=== PATIENT | male | born 1970 | race Native Hawaiian/Other Pacific Islander ===

== ENCOUNTER 2016-11-26 17:58 | Emergency (ER) | payer MEDICAID ==
[~2016-11-26] VITALS: Ht 162.6 cm; Wt 70.8 kg
[2016-11-26 18:11] VITALS: BP 159/89
--- NOTE | 2016-11-26 19:39 | NUR ---
PT TAKEN TO BED 6
[2016-11-26 19:41] LABS: HEMATOCRIT 49.8 % (36-52); HEMOGLOBIN 16.6 g/dL (12.0-18.0); MEAN CORPUSCULAR HEMOGLOBIN 30 pg (27-31); MEAN CORPUSCULAR HGB CONC 33 g/dL (33-37); MEAN CORPUSCULAR VOLUME 89 fL (80-94); PLATELET COUNT (AUTO) 356 K/uL (140-450); RED BLOOD CELL COUNT(AUTO) 5.57 MIL/uL (4.20-6.10); RED CELL DISTRIBUTION WIDTH 11.9 % (11.6-13.7); WHITE BLOOD COUNT (AUTO) 22.3 K/uL (4.8-10.8)
[2016-11-26 19:47] LABS: ALBUMIN 4.1 g/dL (3.4-5.0); ANION GAP 11.1 (8-16); CARBON DIOXIDE 31.4 mmol/L (21-32); CREATININE 1.1 mg/dL (0.7-1.3); POTASSIUM 3.5 mmol/L (3.5-5.1); TOTAL BILIRUBIN 1.6 mg/dL (0.0-1.0)
--- NOTE | 2016-11-26 19:50 | NUR ---
45/M C/O 11/29 EPIGASTRIC PAIN x TODAY @ 1300 AFTER EATING A MEAL, SHARP NON-RADIATING. PT HAS N/V x 6 BUT NO DIARRHEA OR CONSTIPATION RPEORTED. BS ACTIVE X 4 QUADRANTS, EPIGASTRIC TENDER TO TOUCH. NO PMH REPORTED, NO RX REPORTED SKIN IS PINK/WARM/DRY; AAOX4 WITH EVEN AND STEADY GAIT; LUNGS CLEAR BL; HR EVEN AND REGULAR; PT DENIES ANY FEVER, CP, SOB, OR COUGH AT THIS TIME; VSS; PATIENT POSITIONED FOR COMFORT; HOB ELEVATED; BEDRAILS UP X2; BED DOWN. ER MD MADE AWARE OF PT STATUS.
[2016-11-26 19:54] LABS: LYMPHOCYTES % (MANUAL) 3 % (20-46); MONOCYTES % (MANUAL) 1 % (5-12)
--- NOTE | 2016-11-26 20:47 | NUR ---
Dr. Joaquin evaluating patient at bedside.
--- NOTE | 2016-11-26 21:45 | NUR ---
Ultrasound at bedside.
--- NOTE | 2016-11-26 23:32 | NUR ---
Patient discharged with v/s stable. Written and verbal after care instructions given and explained. Patient alert, oriented and verbalized understanding of instructions. Ambulatory with steady gait. All questions addressed prior to discharge. ID band removed. Patient advised to follow up with PMD. Rx of PROTONIX 40 MG given. Patient educated on indication of medication including possible reaction and side effects. Opportunity to ask questions provided and answered.
[2016-11-26 23:36] VITALS: BP 130/81
== END 2016-11-26 23:32 | disposition home or self-care (01) ==
LOC: MED 17:58
DX: K80.20 Calculus of gallbladder without cholecystitis without obstruction (principal); R03.0 Elevated blood-pressure reading, without diagnosis of hypertension
CPT/HCPCS: 36415; 74176; 76705; 80053; 82150; 83615; 83690; 85025; 93005; 99285; Q0092

== ENCOUNTER 2022-05-30 14:10 | Inpatient (IN) | payer MEDICAID ==
[~2022-05-30] VITALS: Ht 162.6 cm; Wt 67.1 kg
[2022-05-30 14:42] VITALS: BP 152/89
[2022-05-30] MEDS ORDERED: ALUMINUM HYD/MAG/SIMETHICONE 30 ML UDC PO ONE (15:50)
[2022-05-30] MEDS ORDERED: FAMOTIDINE 20 MG TAB PO ONE (15:50)
[2022-05-30 16:04] LABS: BASOPHILS # (AUTO) 0.1 K/uL (0.00-0.22); BASOPHILS % (AUTO) 0.5 % (0.0-2.0); EOSINOPHILS # (AUTO) 0.1 K/uL (0-0.4); EOSINOPHILS % (AUTO) 0.9 % (0.0-4.0); HEMATOCRIT 45.7 % (36-52); HEMOGLOBIN 15.6 g/dL (12.0-18.0); LYMPHOCYTES # (AUTO) 1.3 K/uL (2.0-11.5); LYMPHOCYTES % (AUTO) 10.2 % (20.5-51.1); MEAN CORPUSCULAR HEMOGLOBIN 30 pg (27-31); MEAN CORPUSCULAR HGB CONC 34 g/dL (33-37); MEAN CORPUSCULAR VOLUME 88.8 fL (80-94); MONOCYTES # (AUTO) 0.8 K/uL (0.8-1.0); MONOCYTES % (AUTO) 6.6 % (1.7-9.3); NEUTROPHILS # (AUTO) 10.5 K/uL (1.8-7.7); NEUTROPHILS % (AUTO) 81.8 % (42.2-75.2); PLATELET COUNT (AUTO) 279 K/uL (140-450); RED BLOOD CELL COUNT(AUTO) 5.15 MIL/uL (4.20-6.10); RED CELL DISTRIBUTION WIDTH 12.7 % (11.6-13.7); WHITE BLOOD COUNT (AUTO) 12.8 K/uL (4.8-10.8)
[2022-05-30 16:21] LABS: ALBUMIN 3.9 g/dL (3.4-5.0); ANION GAP 7.9 (8-16); ASPARTATE AMINOTRANSFERASE 46 U/L (15-37); CARBON DIOXIDE 31.7 mmol/L (21-32); CHLORIDE 104 mmol/L (98-107); CREATININE 0.9 mg/dL (0.6-1.3); GFR ARICAN-AMERICAN 115 mL/min (>90); GLUCOSE 136 mg/dL (74-106); LIPASE 79 U/L (73-393); POTASSIUM 4.6 mmol/L (3.5-5.1); SODIUM SERUM 139 mmol/L (136-145); TOTAL BILIRUBIN 0.4 mg/dL (0.0-1.0); UREA NITROGEN, BLOOD 10 mg/dL (7-18)
[2022-05-30] MEDS ORDERED: FAMOTIDINE 20 MG TAB ONE (17:01)
[2022-05-30] MEDS ORDERED: ALUMINUM HYD/MAG/SIMETHICONE 30 ML UDC ONE (17:02)
[2022-05-30] MEDS ORDERED: KETOROLAC 15 MG/ML VIAL IM ONE (17:20)
[2022-05-30] MEDS ORDERED: MORPHINE SULFATE 4 MG/ML SYR IVP ONE (19:05)
[2022-05-30] MEDS ORDERED: NACL 0.9% 1,000 ML IV ONE (19:05)
[2022-05-30] MEDS ORDERED: ONDANSETRON 4 MG/2 ML VIAL IVP ONE (19:05)
--- NOTE | 2022-05-30 20:00 | NUR ---
PT WENT TO THE BED 11
--- NOTE | 2022-05-30 20:10 | NUR ---
pt is presenting to the ED for evaluation of a 2-day history of intermittent, nonradiating, burning epigastric abdominal pain. Patient reports the pain feels worse after eating. pt is lart and oriented. Pt speakes pashto only. ambulatory and room air.
--- NOTE | 2022-05-30 20:30 | NUR ---
pt is complaning about the apin in the abd 09/29.
[2022-05-30] MEDS: NACL 0.9% 1,000 ML IV SCH (22:36)
--- NOTE | 2022-05-30 23:30 | NUR ---
pt asking for the food since he was hungry. Item was provided.
[2022-05-31 00:10] VITALS: BP 144/88
--- NOTE | 2022-05-31 00:10 | NUR ---
PT TRANSPORTED BY ER NURSE FROM ER VIA WHEELCHAIR. RECEIVED REPORT FROM ER NURSE MELI FOR CONTINUITY OF CARE. PT A/A/O, AMBULATORY, ABLE TO MAKE NEEDS KNOWN. RESPIRATIONS EVEN AND UNLABORED ON RA. NO DISTRESS NOTED. COMPLAINED OF ABDOMINAL PAIN 09/29. MD WAS INFORMED, AWAITING FOR CALL BACK. V/S AND MRSA SWAB TAKEN. PT ON NPO. PT WAS AWARE AND NPO SIGN PLACED AT THE PT'S ROOM. PT ORIENTED TO PLACE, UNIT AND ROUTINE. ADMISSION COMPLETED VIA GRAVEL MACHINE OPERATOR #[id number]. POC DISCUSSED. CALL LIGHT WITHIN REACH. SAFETY PRECAUTIONS IN PLACE.
[2022-05-31] MEDS ORDERED: LORA10TA19 PO (00:39)
[2022-05-31] MEDS ORDERED: DULO60EC1 PO (00:39)
[2022-05-31] MEDS ORDERED: ATOR20TA PO (00:39)
[2022-05-31] MEDS ORDERED: ATA25 PO (00:39)
[2022-05-31] MEDS ORDERED: OXCA300T26 PO (00:39)
[2022-05-31] MEDS ORDERED: LUBI24SG4 PO (00:39)
[2022-05-31] MEDS ORDERED: KEP500 PO (00:39)
[2022-05-31] MEDS ORDERED: LINA72CA PO (00:39)
[2022-05-31] MEDS ORDERED: MORPHINE SULFATE 2 MG/ML SYR IVP PRN (01:00)
[2022-05-31 04:00] VITALS: BP 130/75
[2022-05-31 06:03] LABS: BASOPHILS # (AUTO) 0.1 K/uL (0.00-0.22); BASOPHILS % (AUTO) 0.5 % (0.0-2.0); EOSINOPHILS # (AUTO) 0.2 K/uL (0-0.4); EOSINOPHILS % (AUTO) 1.7 % (0.0-4.0); HEMATOCRIT 42.4 % (36-52); HEMOGLOBIN 14.2 g/dL (12.0-18.0); LYMPHOCYTES # (AUTO) 1.6 K/uL (2.0-11.5); LYMPHOCYTES % (AUTO) 13.1 % (20.5-51.1); MEAN CORPUSCULAR HEMOGLOBIN 30 pg (27-31); MEAN CORPUSCULAR HGB CONC 34 g/dL (33-37); MEAN CORPUSCULAR VOLUME 89.5 fL (80-94); MONOCYTES # (AUTO) 1.3 K/uL (0.8-1.0); MONOCYTES % (AUTO) 10.4 % (1.7-9.3); NEUTROPHILS # (AUTO) 9.3 K/uL (1.8-7.7); NEUTROPHILS % (AUTO) 74.3 % (42.2-75.2); PLATELET COUNT (AUTO) 258 K/uL (140-450); RED BLOOD CELL COUNT(AUTO) 4.73 MIL/uL (4.20-6.10); RED CELL DISTRIBUTION WIDTH 12.6 % (11.6-13.7); WHITE BLOOD COUNT (AUTO) 12.5 K/uL (4.8-10.8)
[2022-05-31 06:16] LABS: CARBON DIOXIDE 30.1 mmol/L (21-32); CREATININE 0.8 mg/dL (0.6-1.3); POTASSIUM 4.1 mmol/L (3.5-5.1)
[2022-05-31] MEDS: NACL 0.9% 1,000 ML IV SCH ×3 (06:40→23:15)
--- NOTE | 2022-05-31 07:20 | NUR ---
GAVE BEDSIDE REPORT TO SANJAY ARCEO. PT IS STABLE.
[2022-05-31 08:00] VITALS: BP 138/86
--- NOTE | 2022-05-31 08:30 | NUR ---
RECEIVED TRANSFER OF CARE OF PATIENT FROM NURSE WITHIN SAME SHIFT. CARE OF PLAN OBSERVED, PATIENT CARE RESUMED.
--- NOTE | 2022-05-31 09:36 | NUR ---
PATIENT HAS BEEN SCREENED AND CATEGORIZED LOW NUTRITION RISK. PATIENT WILL BE SEEN WITHIN 7 DAYS OF ADMISSION. 06/06/[address] SH[address]AR BARRAZA RD
--- NOTE | 2022-05-31 11:45 | NUR ---
MD SEEN PATIENT. PATIENT PREPARED FOR OR TRANSFER.
[2022-05-31] MEDS ORDERED: SUGAMMADEX SODIUM 200 MG/2 ML VIAL IV ONE ×2 (12:00→12:56)
[2022-05-31] MEDS ORDERED: PROPOFOL 200 MG/20 ML VIAL IV ONE ×2 (12:00→12:56)
[2022-05-31] MEDS ORDERED: ceFAZolin 1,000 MG VIAL ONE (12:00)
[2022-05-31] MEDS ORDERED: ONDANSETRON 4 MG/2 ML VIAL IVP PRN (12:00)
[2022-05-31] MEDS ORDERED: HYDROmorphone PFS 2 MG/ML SYR ONE ×2 (12:00→13:02)
[2022-05-31] MEDS ORDERED: KETOROLAC 30 MG/ML VIAL ONE ×2 (12:00→12:56)
[2022-05-31] MEDS ORDERED: ROCURONIUM 50 MG/5 ML VIAL IV ONE ×2 (12:00→12:56)
[2022-05-31] MEDS ORDERED: HYDROmorphone 1 MG/ML AMP IVP PRN ×2 (12:00→14:15)
[2022-05-31] MEDS ORDERED: fentaNYL citrate 0.05 MG/ML - 50mL vial IV ONE (12:00)
[2022-05-31] MEDS ORDERED: ONDANSETRON 4 MG/2 ML VIAL ONE ×2 (12:00→12:56)
[2022-05-31] MEDS ORDERED: LIDOCAINE 1% 500 MG/50 ML VIAL ONE (12:08)
[2022-05-31] MEDS ORDERED: fentaNYL citrate 0.05 MG/ML VIAL ONE (12:51)
[2022-05-31] MEDS ORDERED: DEXAMETHASONE 4 MG/ML VIAL ONE (12:56)
[2022-05-31] MEDS ORDERED: SUCCINYLCHOLINE CHLORIDE 200 MG/10 ML VIAL IVP ONE (12:56)
[2022-05-31] MEDS ORDERED: LABETALOL 100 MG/20 ML VIAL ONE (14:03)
[2022-05-31] MEDS ORDERED: HYDROcodone/APAP 5/325 MG 1 TAB TAB PO PRN (14:15)
--- NOTE | 2022-05-31 14:30 | NUR ---
RECEIVED PATIENT FROM OR. PATIENT POST LAP TEENA. VITALS STABLE. PATIENT MONITORING RESUMED.
[2022-05-31 15:26] VITALS: BP 127/76
--- NOTE | 2022-05-31 19:25 | NUR ---
ENDORSED PATIENT TO PM NURSE FOR CONTINUATION OF CARE.
--- NOTE | 2022-05-31 19:26 | NUR ---
RECEIVED REPORT FROM DAY SHIFT NURSE BAMBI FOR CONTINUITY OF CARE. PT AWAKE SITTING IN BED WITH VISITOR AT BEDSIDE. RESPIRATIONS EVEN AND UNLABORED ON RA. DENIES PAIN. S/P LAP TEENA. NOTED 4 INCISION SITES ON ABD. IVF INFUSING TO RAC. POC DISCUSSED WITH PT AND JIMMY LAWLER. CALL LIGHT WITHIN REACH. SAFETY PRECAUTIONS IN PLACE.
[2022-05-31 20:00] VITALS: BP 134/82
--- NOTE | 2022-05-31 20:02 | NUR ---
V/S TAKEN. WITHIN NORMAL LIMITS. PT DENIES PAIN. TOLERATED DIET.
[2022-06-01] MEDS: NACL 0.9% 1,000 ML IV SCH ×4 (02:40→22:40)
[2022-06-01 04:00] VITALS: BP 100/58
--- NOTE | 2022-06-01 07:27 | NUR ---
GAVE BEDSIDE REPORT TO SANJAY TURNER. PT IS STABLE.
--- NOTE | 2022-06-01 07:28 | NUR ---
RECEIVED REPORT FROM FORGING ROLL OPERATOR NURSE, YNES, FOR CONTINUITY OF CARE. PT IN BED AT THIS TIME, WATCHING TELEVISION. RESPIRATIONS ARE EVEN AND UNLABORED ON ROOM AIR. NO SIGNS OF DISTRESS NOTED. PT IS ALERT AND ORIENTED X4, ABLE TO VERBALIZE NEEDS, ABLE TO FOLLOW COMMANDS. PT IS ON CARDIAC DIET, TOLERATING WELL. PT HAS IV TO RAC 20G WITH NS RUNNING AT 100ML/HR. PT IS S/P LAP TEENA, WITH 4 INCISION SITES COVERED WITH DERMABOND, NO COMPLAINTS OF PAIN OR DISCOMFORT. CALL LIGHT WITHIN REACH. ALL SAFETY MEASURES IN PLACE.
[2022-06-01] MEDS: LORATADINE 10 MG TAB PO SCH (09:07)
[2022-06-01] MEDS: LUBIPROSTONE 24 MCG CAPSULE PO SCH (09:07)
[2022-06-01] MEDS: ATORVASTATIN 20 MG TAB PO SCH (09:07)
[2022-06-01] MEDS: DULoxetine 30 MG CAPDR PO SCH (09:07)
[2022-06-01] MEDS: HYDROXYZINE HYDROCHLORIDE 25 MG TAB PO SCH (09:07)
[2022-06-01] MEDS: levETIRAcetam 500 MG TAB PO SCH (09:08)
--- NOTE | 2022-06-01 09:10 | NUR ---
ADMINISTERED SCHEDULED MEDICATIONS. EDUCATED PT ON MEDS ADMINISTERED. ANSWERED ALL QUESTIONS. PT VERBALIZED UNDERSTANDING OF ALL INFORMATION PROVIDED.
[2022-06-01] MEDS ORDERED: CEPH-588 PO (09:15)
[2022-06-01] MEDS ORDERED: IBUP-1842 PO (09:16)
--- NOTE | 2022-06-01 11:40 | NUR ---
DID ROUNDS ON PT. PT IN BED WATCHING TELEVISION. RESPIRATIONS ARE EVEN AND UNLABORED. PT STATES PAIN IS TOLERABLE AT THIS TIME.
--- NOTE | 2022-06-01 15:03 | NUR ---
PT COMPLAINING OF PAIN. RATES PAIN 6/10. MEDICATED.
[2022-06-01 16:00] VITALS: BP 110/67
--- NOTE | 2022-06-01 16:03 | NUR ---
WENT TO RE-ASSESS PT PAIN LEVEL. PT VERBALIZES PAIN AT 2/10.
--- NOTE | 2022-06-01 18:22 | NUR ---
DID ROUNDS ON PT. FAMILY AT BEDSIDE. UPDATED FAMILY PER PT REQUEST. PT ALSO ASKING IF TOMORROW LARRY OPERATOR CAN COME BY AND SPEAK TO PT REGARDING MEDICAL APPROVAL. WILL ENDORSE TO ONCOMING SHIFT.
--- NOTE | 2022-06-01 19:13 | NUR ---
ENDORSED PT TO GLASS WOOL BLANKET MACHINE FEEDER NURSE, VIPUL, FOR CONTINUITY OF CARE. PT IS STABLE.
--- NOTE | 2022-06-01 19:14 | NUR ---
RECD. RESTING IN BED, AWAKE, A/OX4. RESPIRATION EVEN AND UNLABORED. IV OF NS INFUSING AT100 ML/HR, RIGHT AC G20. INCISION IN THE ABDOMEN (4) WITH DERMA TRIPLETT, OPEN TO AIR. DRY AND INTACT. ENCOURAGED TO GET OUT OF BED AND AMBULATE. PAIN IN THE ABDOMEN 03/01, TOLERABLE. ADVISED TO CALL WHEN NEEDING PAIN MEDICATION. VERBALIZED UNDERSTANDING. FAMILY MEMBER AT BEDSIDE.
--- NOTE | 2022-06-01 19:15 | NUR ---
Patient's Plan of Care was discussed and reviewed with SANJAY: VIPUL
[2022-06-01 20:00] VITALS: BP 115/69
--- NOTE | 2022-06-01 21:00 | NUR ---
AWAKE, WATCHING TV. GIVEN HOT TEA REQUESTED. VERBALIZED HE DOES NOT NEED PAIN MEDICATION THIS TIME.
--- NOTE | 2022-06-02 | NUR ---
SLEEPING COMFORTABLY IN BED, RESPIRATION EVEN AND UNLABORED.
--- NOTE | 2022-06-02 02:00 | NUR ---
AMBULATED TO CR TO HAVE BM. BACK TO BED AFTER AND AND WENT BACK TO SLEEP.
[2022-06-02] MEDS: NACL 0.9% 1,000 ML IV SCH ×2 (03:10→08:40)
--- NOTE | 2022-06-02 04:00 | NUR ---
SLEEPING COMFORTABLY IN BED. RESPIRATION EVEN AND UNLABORED.
--- NOTE | 2022-06-02 06:00 | NUR ---
ABLE TO SLEEP WELL. NO COMPLAINT OF PAIN DURING THE SHIFT.
[2022-06-02 07:05] LABS: BASOPHILS % (AUTO) 0.4 % (0.0-2.0); EOSINOPHILS # (AUTO) 0.3 K/uL (0-0.4); EOSINOPHILS % (AUTO) 2.5 % (0.0-4.0); HEMATOCRIT 36.8 % (36-52); HEMOGLOBIN 12.4 g/dL (12.0-18.0); LYMPHOCYTES # (AUTO) 2.8 K/uL (2.0-11.5); LYMPHOCYTES % (AUTO) 23.5 % (20.5-51.1); MEAN CORPUSCULAR HEMOGLOBIN 30 pg (27-31); MEAN CORPUSCULAR HGB CONC 34 g/dL (33-37); MEAN CORPUSCULAR VOLUME 89.7 fL (80-94); MONOCYTES # (AUTO) 1.1 K/uL (0.8-1.0); MONOCYTES % (AUTO) 9.5 % (1.7-9.3); NEUTROPHILS # (AUTO) 7.6 K/uL (1.8-7.7); NEUTROPHILS % (AUTO) 64.1 % (42.2-75.2); PLATELET COUNT (AUTO) 251 K/uL (140-450); RED BLOOD CELL COUNT(AUTO) 4.11 MIL/uL (4.20-6.10); RED CELL DISTRIBUTION WIDTH 12.3 % (11.6-13.7); WHITE BLOOD COUNT (AUTO) 11.8 K/uL (4.8-10.8)
--- NOTE | 2022-06-02 07:20 | NUR ---
STILL SLEEPING COMFORTABLY. ENDORSED TO AM SHIFT NURSE FOR CONTINUITY OF CARE.
--- NOTE | 2022-06-02 07:21 | NUR ---
RECEIVED PT FROM MILITARY EXCHANGE WIRELESS MANAGER NURSE FOR CONTINUITY OF CARE. PT IN BED, AWAKE AOX4. RESPIRATIONS EVEN AND UNLABORED ON RA. IV ON L AC 20G, SL. PT DENIES ANY PAIN. CALL LIGHT WITHIN REACH. ALL SAFETY PRECAUTIONS IN PLACE.
[2022-06-02 07:22] LABS: ALBUMIN 2.6 g/dL (3.4-5.0); ANION GAP 11.3 (8-16); CARBON DIOXIDE 27.6 mmol/L (21-32); CREATININE 0.6 mg/dL (0.6-1.3); POTASSIUM 3.9 mmol/L (3.5-5.1); TOTAL BILIRUBIN 0.4 mg/dL (0.0-1.0)
[2022-06-02 08:00] VITALS: BP 114/63
[2022-06-02] MEDS: LORATADINE 10 MG TAB PO SCH (08:30)
[2022-06-02] MEDS: LUBIPROSTONE 24 MCG CAPSULE PO SCH (08:30)
[2022-06-02] MEDS: levETIRAcetam 500 MG TAB PO SCH (08:30)
[2022-06-02] MEDS: ATORVASTATIN 20 MG TAB PO SCH (08:30)
[2022-06-02] MEDS: HYDROXYZINE HYDROCHLORIDE 25 MG TAB PO SCH (08:31)
[2022-06-02] MEDS: DULoxetine 30 MG CAPDR PO SCH (08:31)
--- NOTE | 2022-06-02 08:34 | NUR ---
ADMINISTERED SCHEDULED MEDS. PT TOLERATING WELL.
[2022-06-02 12:48] VITALS: BP 114/63
--- NOTE | 2022-06-02 15:29 | NUR ---
DISCUSSED DC PACKET WITH PT, PROVIDED PT TEACHING REGARDING DISCHARGE. REMOVED IV AND NAME BAND. PT GATHERED BELONGING AND [facility]. PT IN STABLE CONDITION. DC TO HOME.
== END 2022-06-02 15:26 | disposition home or self-care (01) | DRG 263 ==
LOC: MED 14:10 → MTU 20:41
PROC: 0FT44ZZ Resection of Gallbladder, Percutaneous Endoscopic Approach (ICD-10-PCS; principal; 2022-05-31 12:00)
DX: K80.62 Calculus of gallbladder and bile duct with acute cholecystitis without obstruction (principal); E83.51 Hypocalcemia; Z20.822 Contact with and (suspected) exposure to COVID-19; K21.9 Gastro-esophageal reflux disease without esophagitis; R73.9 Hyperglycemia, unspecified; R74.01 Elevation of levels of liver transaminase levels; Z79.899 Other long term (current) drug therapy
CPT/HCPCS: 36415; 76705; 80048; 80053; 82374; 83690; 84484; 85025; 87081; 88304; 96361; 96372; 96374; 96375; 99285; J0330; J0690; J1100; J1170; J1885; J2001; J2270; J2405; J2704; J3010; J3490; J7030; Q0092

== ENCOUNTER 2022-09-23 17:32 | Emergency (ER) | payer MEDICAID, OTHER ==
[~2022-09-23] VITALS: Ht 162.6 cm; Wt 63.5 kg
[~2022-09-23 17:32] MED LIST: ATA25 PO; ATOR20TA PO; CEPH-588 PO; DULO60EC1 PO; IBUP-1842 PO; KEP500 PO; LINA72CA PO; LORA10TA19 PO; LUBI24SG4 PO; OXCA300T26 PO
[2022-09-23 17:49] VITALS: BP 122/60; PULSE 70; RESP 20; TEMP 97.2; O2SAT 94
[2022-09-23] MEDS ORDERED: LORATADINE 10 MG TAB PO ONE (18:30)
[2022-09-23] MEDS ORDERED: predniSONE 20 MG TAB PO ONE (18:30)
[2022-09-23] MEDS ORDERED: CETI-403 PO (19:06)
[2022-09-23] MEDS ORDERED: PRED20TA5 PO (19:06)
--- NOTE | 2022-09-23 19:11 | NUR ---
Patient discharged with v/s stable. Written and verbal after care instructions given and explained. Patient alert, oriented and verbalized understanding of instructions. Ambulatory with steady gait. All questions addressed prior to discharge. ID band removed. Patient advised to follow up with PMD. Rx of dtirizine, prednisone given. Patient educated on indication of medication including possible reaction and side effects. Opportunity to ask questions provided and answered.
== END 2022-09-23 19:10 | disposition home or self-care (01) ==
LOC: MED 17:32
DX: L50.9 Urticaria, unspecified (principal); K21.9 Gastro-esophageal reflux disease without esophagitis; Z79.899 Other long term (current) drug therapy
CPT/HCPCS: 99283; J7512

== ENCOUNTER 2022-12-05 17:19 | Emergency (ER) | payer OTHER ==
[~2022-12-05] VITALS: Ht 162.6 cm; Wt 63.5 kg
[~2022-12-05 17:19] MED LIST changes: +CETI-403 PO; +PRED20TA5 PO
[2022-12-05 18:52] VITALS: BP 119/78; PULSE 82; RESP 18; TEMP 98; O2SAT 97
[2022-12-05] MEDS ORDERED: PROM118S5 PO (21:40)
[2022-12-05 22:22] VITALS: BP 118/72; PULSE 72; RESP 18; TEMP 98; O2SAT 97
[2022-12-05 23:19] LABS: FLU A ANTIGEN negative (NEGATIVE); FLU B ANTIGEN NEGATIVE (NEGATIVE)
[2022-12-06] MEDS ORDERED: BACITRACIN OINT 500 UNITS/GM PKT TP ONE (01:34)
== END 2022-12-05 22:22 | disposition home or self-care (01) ==
LOC: MED 17:19
DX: J40 Bronchitis, not specified as acute or chronic (principal); Z20.822 Contact with and (suspected) exposure to COVID-19; K21.9 Gastro-esophageal reflux disease without esophagitis; Z79.899 Other long term (current) drug therapy
CPT/HCPCS: 71045; 99284